=== PATIENT | female | born 1990 | race Hispanic/Latino ===

== ENCOUNTER 2017-11-12 18:38 | Emergency (ER) | payer SELFPAY ==
[2017-11-12 18:50] VITALS: BP 142/83; PULSE 104; RESP 16; TEMP 97; O2SAT 100
--- NOTE | 2017-11-12 19:37 | ED PDOC ---
HPI: Female Pain Time Seen by Provider: 11/12/17 18:51 Chief Complaint (Nursing): Back Pain Chief Complaint (Provider): Urinary Frequency and Dysuria History Per: Patient History/Exam Limitations: no limitations Onset/Duration Of Symptoms: Days (x3) Current Symptoms Are (Timing): Still Present Associated Symptoms: denies: Fever, Vomiting, Back Pain Additional Complaint(s): 27 year old female presenting to the ED complaining of urinary frequency and dysuria since . The patient states that she was seen at urgent care and diagnosed with a urinary tract infection and prescribed cipro. She reports that she took one dose of cipro but felt like her symptoms were not improving so she came in to the emergency department. Denies fever, abd pain, flank pain, hematuria, incontinence. PMD: Non H Provider, Abnormal Vaginal Bleeding: No Past Medical History Reviewed: Historical Data, Nursing Documentation, Vital Signs Vital Signs: Last Vital Signs Temp 97.0 F L 11/12/17 18:49 Pulse 104 H 11/12/17 18:49 Resp 16 11/12/17 18:49 BP 142/83 11/12/17 18:49 Pulse Ox 100 11/12/17 18:49 - Medical History PMH: No Chronic Diseases - Surgical History Surgical History: No Surg Hx - Family History Family History: States: No Known Family Hx - Home Medications Home Medications: Ambulatory Orders Medication Instructions Recorded Phenazopyridine [Pyridium] 100 mg PO BID #6 tab 11/12/17 - Allergies Allergies/Adverse Reactions: Allergies Allergy/AdvReac Type Severity Reaction Status Date / Time No Known Allergies Allergy Verified 10/07/16 23:53 Review of Systems ROS Statement: Except As Marked, All Systems Reviewed And Found Negative Constitutional: Negative for: Fever Gastrointestinal: Negative for: Vomiting, Abdominal Pain Genitourinary Female: Positive for: Dysuria, Frequency. Negative for: Hematuria Physical Exam - Reviewed Nursing Documentation Reviewed: Yes Vital Signs Reviewed: Yes - Physical Exam Appears: Positive for: Non-toxic, No Acute Distress Head Exam: Positive for: ATRAUMATIC, NORMAL INSPECTION, NORMOCEPHALIC Skin: Positive for: Normal Color, Warm, Dry. Negative for: Rash Gastrointestinal/Abdominal: Positive for: Normal Exam, Soft. Negative for: Tenderness, Mass, Guarding, Rebound Back: Positive for: Normal Inspection. Negative for: L CVA Tenderness, R CVA Tenderness, Vertebral Tenderness Neurologic/Psych: Positive for: Alert, Oriented - ECG O2 Sat by Pulse Oximetry: 100 (RA) Pulse Ox Interpretation: Normal Medical Decision Making Medical Decision Makin Initial Impression 27 year old female presenting with urinary frequency and dysuria Initial Plan: * Reevaluation Documented by Peace Riggins acting as a scribe for Seth Beyer PA-C. All medical record entries made by the Scribe were at my direction and personally dictated by me. I have reviewed the chart and agree that the record accurately reflects my personal performance of the history, physical exam, medical decision making, and the department course for this patient. I have also personally directed, reviewed, and agree with the discharge instructions and disposition. Disposition - Clinical Impression Clinical Impression: UTI (urinary tract infection) - Patient ED Disposition Is Patient to be Admitted: No - Disposition Referrals: Darcy Oakes [Outside] Disposition: Routine/Home Disposition Time: 19:30 Condition: STABLE Additional Instructions: Continue taking Cipro as previously prescribed. Return to ED if symptoms persist or worsen. Prescriptions: Phenazopyridine [Pyridium] 100 mg PO BID #6 tab Instructions: Urinary Tract Infection in Women (ED) Forms: [employer] (Kyrgyz) Print Language: RUSSIAN
== END 2017-11-12 20:03 | disposition home or self-care (01) ==
LOC: H.ER 18:38
DX: N39.0 Urinary tract infection, site not specified (principal)